=== PATIENT | female | born 1995 | race Hispanic/Latino ===

== ENCOUNTER 2022-02-27 00:18 | Emergency (ER) | payer SELFPAY ==
[2022-02-27] MEDS ORDERED: Lidocaine 4% Topical Sol 50 ML BOT ONE (00:34)
== END 2022-02-27 01:20 | disposition home or self-care (01) ==
LOC: NAV ERS 00:18
DX: T16.1XXA Foreign body in right ear, initial encounter (principal)
CPT/HCPCS: 99282